=== PATIENT | female | born 1985 | race Hispanic/Latino ===

== ENCOUNTER 2017-08-06 13:10 | Observation (INO) | payer BC, MEDICAID, OTHER ==
[~2017-08-06 13:10] MED LIST: FERR325C PO; PREN-146 PO
[2017-08-06 14:02] LABS: APPEARANCE,URINE Clear (CLEAR); BILIRUBIN,URINE Negative (NEGATIVE); COLOR,URINE Yellow (YELLOW); GLUCOSE, URINE (UA) Negative (NEGATIVE); KETONES,URINE Negative (NEGATIVE); LEUKOCYTE ESTERASE ,URINE Negative (NEGATIVE); NITRATE,URINE Negative (NEGATIVE); OCCULT BLOOD,URINE Negative (NEGATIVE); PROTEIN,URINE Negative (NEGATIVE); UROBILINOGEN,URINE 0.2 mg/dL (0.2-1.0)
== END 2017-08-06 14:47 | disposition home or self-care (01) ==
LOC: EDH 13:10 → LDH 13:36
DX: O99.712 Diseases of the skin and subcutaneous tissue complicating pregnancy, second trimester (principal); L29.9 Pruritus, unspecified; Z3A.27 27 weeks gestation of pregnancy
CPT/HCPCS: 81003; 99285; G0378

== ENCOUNTER 2017-09-26 16:07 | Observation (INO) | payer BC ==
[~2017-09-26] VITALS: Ht 152.4 cm; Wt 68.9 kg
== END 2017-09-26 20:08 | disposition home or self-care (01) ==
LOC: LDH 16:07
DX: O26.893 Other specified pregnancy related conditions, third trimester (principal); V89.2XXA Person injured in unspecified motor-vehicle accident, traffic, initial encounter; Y93.89 Activity, other specified; Y92.410 Unspecified street and highway as the place of occurrence of the external cause; Y99.8 Other external cause status; Z3A.35 35 weeks gestation of pregnancy
CPT/HCPCS: G0378 ×5

== ENCOUNTER 2018-11-13 20:39 | Emergency (ER) | payer BC ==
[2018-11-13] MEDS ORDERED: ONDANSETRON HCL 4 MG/2 ML VIAL ONE (21:59)
[2018-11-13] MEDS ORDERED: SODIUM CHLORIDE 0.9% 1000ML 1,000 ML IV ONE ×2 (22:05→22:43)
[2018-11-13 22:06] LABS: BASOPHILS % (AUTO) 0.4 % (0.0-5.0); EOSINOPHILS % (AUTO) 0.2 % (0.0-8.0); HEMATOCRIT 43.2 % (36-48); LYMPHOCYTES % (AUTO) 4.8 % (21.0-51.0); MEAN CORPUSCULAR HEMOGLOBIN 25.9 pg (27.0-33.0); MEAN CORPUSCULAR HGB CONC 32.9 g/dL (32.0-36.0); MEAN CORPUSCULAR VOLUME 78.5 fL (79-99); MONOCYTES % (AUTO) 3.4 % (3.0-13.0); NEUTROPHILS % (AUTO) 91.2 % (40.0-77.0); PLATELET COUNT (AUTO) 298 K/uL (130-400); RED CELL DISTRIBUTION WIDTH 13.8 % (11.0-15.5); WHITE BLOOD COUNT (AUTO) 12.1 K/uL (4.8-10.8)
[2018-11-13 22:18] LABS: CREATININE 0.9 mg/dL (0.5-1.5)
[2018-11-14 00:25] LABS: APPEARANCE,URINE Clear (CLEAR); BILIRUBIN,URINE Negative (NEGATIVE); COLOR,URINE Yellow (YELLOW); GLUCOSE, URINE (UA) Negative (NEGATIVE); KETONES,URINE Negative (NEGATIVE); LEUKOCYTE ESTERASE ,URINE Negative (NEGATIVE); NITRATE,URINE Negative (NEGATIVE); OCCULT BLOOD,URINE Negative (NEGATIVE); PROTEIN,URINE Negative (NEGATIVE)
[2018-11-14 00:27] LABS: HCG,QUAL RESULT NEGATIVE (NEGATIVE)
== END 2018-11-14 01:02 | disposition home or self-care (01) ==
LOC: EDH 20:39
DX: E86.0 Dehydration (principal); R55 Syncope and collapse; Z98.890 Other specified postprocedural states
CPT/HCPCS: 36415; 80048; 81003; 81025; 84702; 85025; 87804 ×2; 93005; 96360; 96361; 99285; J2405; J7030 ×2